=== PATIENT | male | born 1970 | race American Indian/Alaskan Native ===

== ENCOUNTER 2017-03-31 02:50 | Emergency (ER) | payer BC ==
[2017-03-31] MEDS ORDERED: MOTRIN ONE (03:21)
[2017-03-31] MEDS ORDERED: ZOFRAN ODT ONE (03:22)
[2017-03-31] MEDS ORDERED: MOTRIN PO ONE (03:25)
[2017-03-31] MEDS ORDERED: ZOFRAN ODT PO ONE (03:26)
[2017-03-31 04:29] LABS: Bilirubin,Urine NEG (Negative); Blood,Urine MOD (Negative); Ketones,Urine NEG (Negative); Leukocyte Esterase,Urine NEG (Negative); Mucus,Urine FEW /HPF; Nitrite,Urine NEG (Negative); Urobilinogen,Urine < 2.0 mg/dL (<2.0); WBC,Urine < 1.0 /HPF (0.0-6.0)
[2017-03-31] MEDS ORDERED: ZOFRAN IV ONE (07:42)
[2017-03-31] MEDS ORDERED: MORPHINE IV ONE (07:42)
[2017-03-31] MEDS ORDERED: NACL 0.9% 1000 ML 1,000 ML IV ONE (07:42)
--- NOTE | 2017-03-31 07:43 | Emergency Department Report ---
ED Abdominal Pain HPI - General Chief Complaint: Abdominal Pain Stated Complaint: L SIDE PAIN Time Seen by Provider: 03/31/17 07:41 Source: patient Mode of arrival: Ambulatory Limitations: No Limitations - History of Present Illness Initial Comments: Patient is a 46-year-old male with a history of kidney stones presenting with acute left lower quadrant flank pain. Patient reports it feels like he has a kidney stone, he can't get in a comfortable position due to severe stabbing pain. No radiation, no migration. Associated nausea and vomiting 1 episode. Otherwise no fevers, chills, headaches, shortness of breath, chest pain, dysuria , hematuria, back pain, scrotal pain, penile pain, penile discharge, trauma, sick contacts, or travel. MD Complaint: abdominal pain, flank pain -: Sudden Location: L flank Radiation: none Migration to: no migration Severity: severe Severity scale (0 -10): 6 Quality: sharp Consistency: constant - Related Data Previous Rx's Medication Instructions Recorded Last Taken Type HYDROcodone/APAP 5-325 [[place] 1 each PO Q4HR PRN #12 tablet 03/31/17 Unknown Rx 5/325] Ondansetron [Zofran ODT TAB] 8 mg PO Q8HR #10 tab.rapdis 03/31/17 Unknown Rx Tamsulosin [Flomax] 0.4 mg PO QDAY #30 cap 03/31/17 Unknown Rx Allergies Allergy/AdvReac Type Severity Reaction Status Date / Time No Known Allergies Allergy Unverified 03/31/17 03:10 ED Review of Systems ROS: Stated complaint: L SIDE PAIN Other details as noted in HPI Comment: All other systems reviewed and negative ED Past Medical Hx - Past Medical History Previous Medical History?: Yes Hx Hypertension: Yes Hx Kidney Stones: Yes - Social History Smoking Status: Unknown if ever smoked Substance Use Type: None - Medications Home Medications: Home Medications Medication Instructions Recorded Confirmed Last Taken Type HYDROcodone/APAP 5-325 [[place] 1 each PO Q4HR PRN #12 tablet 03/31/17 Unknown Rx 5/325] Ondansetron [Zofran ODT TAB] 8 mg PO Q8HR #10 tab.rapdis 03/31/17 Unknown Rx Tamsulosin [Flomax] 0.4 mg PO QDAY #30 cap 03/31/17 Unknown Rx ED Physical Exam - General Limitations: No Limitations General appearance: alert, in no apparent distress - Head Head exam: Present: atraumatic, normocephalic - Eye Eye exam: Present: normal appearance - ENT ENT exam: Present: mucous membranes moist - Neck Neck exam: Present: normal inspection - Respiratory Respiratory exam: Present: normal lung sounds bilaterally. Absent: respiratory distress - Cardiovascular Cardiovascular Exam: Present: regular rate, normal rhythm. Absent: systolic murmur, diastolic murmur, rubs, gallop - GI/Abdominal GI/Abdominal exam: Present: soft, tenderness (Left flank pain), normal bowel sounds. Absent: distended, guarding, rebound, rigid, organomegaly, pulsatile mass - Rectal Rectal exam: Present: deferred - exam: Present: normal inspection External exam: Present: normal external exam - Extremities Exam Extremities exam: Present: normal inspection - Back Exam Back exam: Present: normal inspection, CVA tenderness (L) - Neurological Exam Neurological exam: Present: alert, oriented X3 - Psychiatric Psychiatric exam: Present: normal affect, normal mood - Skin Skin exam: Present: warm, dry, intact, normal color. Absent: rash ED Course Vital Signs 03/31/17 03/31/17 03/31/17 03:11 03:27 06:23 Temperature 98.4 F 98.7 F Pulse Rate 87 66 Respiratory 18 20 20 Rate Blood Pressure 153/101 122/85 Blood Pressure [Left] O2 Sat by Pulse 99 98 Oximetry 03/31/17 03/31/17 07:12 08:10 Temperature 97.7 F Pulse Rate 66 78 Respiratory 18 16 Rate Blood Pressure Blood Pressure 131/90 116/76 [Left] O2 Sat by Pulse 99 100 Oximetry ED Medical Decision Making - Lab Data Result diagrams: 03/31/17 07:50 03/31/17 07:50 - Radiology Data Radiology results: report reviewed, image reviewed CT a/p: Bladder calculus, recently passed in the left ureter, presumably. Mild left hydronephrosis. Lower pole left renal calculus. - Medical Decision Making Results discussed with the patient. Instructed patient to drink plenty of H20 and to avoid high calcium containing meds and foods. Critical care attestation.: If time is entered above; I have spent that time in minutes in the direct care of this critically ill patient, excluding procedure time. ED Disposition Clinical Impression: Acute flank pain, Kidney stone on left side Disposition: DISCHARGED TO HOME OR SELFCARE Is pt being admited?: No Condition: Stable Instructions: Kidney Stones (ED), Flank Pain (ED) Prescriptions: HYDROcodone/APAP 5-325 [[place] 5/325] 1 each PO Q4HR PRN #12 tablet PRN Reason: Pain Ondansetron [Zofran ODT TAB] 8 mg PO Q8HR #10 tab.rapdis Tamsulosin [Flomax] 0.4 mg PO QDAY #30 cap Referrals: PRIMARY CARE, [Primary Care Provider] - 3-5 Days
[2017-03-31 08:12] LABS: Basophils % (Auto) 0.2 % (0.0-1.8); Eosinophils % (Auto) 0.5 % (0.0-4.3); Hematocrit 39.9 % (35.5-45.6); Hemoglobin 13.4 gm/dl (11.8-15.2); Mean Corpuscular HGB Conc 34 % (32-34); Mean Corpuscular Hemoglobin 30 pg (28-32); Mean Corpuscular Volume 90 fl (84-94); Platelet Count 217 K/mm3 (140-440); Red Blood Count 4.45 M/mm3 (3.65-5.03); Red Cell Distribution Width 13.9 % (13.2-15.2); White Blood Count 10.7 K/mm3 (4.5-11.0)
[2017-03-31 08:35] LABS: Alanine Aminotransferase 30 units/L (7-56); Albumin/Globulin Ratio 1.2 %; Alkaline Phosphatase 65 units/L (35-129); Anion Gap 19 mmol/L; Blood Urea Nitrogen 15 mg/dL (9-20); Calcium 9.5 mg/dL (8.4-10.2); Carbon Dioxide 24 mmol/L (22-30); Chloride 97.4 mmol/L (98-107); Glucose 176 mg/dL (75-100); Lipase 17 units/L (13-60); Potassium 3.8 mmol/L (3.6-5.0); Sodium 137 mmol/L (137-145); Total Protein 7.4 g/dL (6.3-8.2)
[2017-03-31] MEDS ORDERED: FLOMAX PO ONE (08:47)
[2017-03-31 08:54] LABS: Bilirubin,Direct 0.2 mg/dL (0-0.2); Bilirubin,Indirect 0.5 mg/dL
--- NOTE | 2017-03-31 09:15 | Cat Scan Report ---
FINAL REPORT EXAM: CT ABDOMEN PELVIS WO CON HISTORY: Abdominal Pain r/o stone TECHNIQUE: CT scan of the abdomen and pelvis without IV or oral contrast. Multiplanar reformations. PRIORS: None. FINDINGS: Twisting Frame Changer images are nondiagnostic secondary to overlying scan lines. Axial, sagittal, and coronal images cannot be crosslinked for reference/level confirmation. Solid organ evaluation is limited secondary to lack of IV contrast. Lung bases show no significant abnormality. No free intraperitoneal gas seen. Liver shows no significant abnormality. Normal-appearing gallbladder and biliary tree. Spleen shows no significant abnormality. Adrenal glands show no significant abnormality. Mild left perinephric stranding and hydronephrosis. Lower pole 3 x 2 mm calculus. Pancreas shows no significant abnormality. Abdominal aorta is nonaneurysmal. No bowel obstruction apparent. The appendix appears normal. No periappendiceal inflammatory changes. 4.4 x 3.3 mm calculus in the dependent portion of the bladder, centrally. This has recently been passed from the left ureter, presumably. No ureteral calculus seen. IMPRESSION: 1. Bladder calculus, recently passed from the left ureter, presumably. Mild left hydronephrosis. Lower pole left renal calculus.
[2017-03-31 11:16] VITALS: BP 132/86
== END 2017-03-31 11:16 | disposition home or self-care (01) ==
LOC: ED 02:50
DX: N20.0 Calculus of kidney (principal); R10.32 Left lower quadrant pain; I10 Essential (primary) hypertension
CPT/HCPCS: 36415; 74176; 80048; 80074; 81001; 83690; 85025; 96361; 96374; 96375; 99284; J2270; J2405; J7030; Q0162